=== PATIENT | female | born 2000 | race Hispanic/Latino ===

== ENCOUNTER 2022-10-07 10:38 | Observation (INO) | payer OTHER, SELFPAY ==
[2022-10-07 11:46] LABS: #Eosinphils 0.1 10x3/uL (0.0-0.5); #Monocytes 0.6 10x3/uL (0.0-1.1); #Neutrophils 9.9 10x3/uL (1.5-8.4); %Basophils 0.3 % (0.0-2.0); %Eosinophils 1.1 % (0.0-6.0); %Lymphocytes 16.3 % (18.0-47.0); %Monocytes 4.3 % (0.0-10.0); %Neutrophils 77.8 % (40.0-75.0); Hemoglobin 12.5 g/dL (12.0-15.5); Mean Corpuscular HGB CONC 32.1 g/dL (32.0-36.0); Mean Corpuscular Hemoglobin 25.2 pg (27.0-33.0); Mean Corpuscular Volume 78.3 fl (81.6-98.3); Mean Platelet Volume 9.9 fl (7.4-10.4); Platelet Count 286 10x3/uL (150-450); RBC Distribution Width 14.5 % (11.5-14.5); Red Blood Cell (RBC) Count 4.97 10x6/uL (3.90-5.03); White Blood Cell (WBC) Count 12.7 10x3/uL (3.5-10.5)
[2022-10-07 11:49] LABS: Bilirubin Neg (Negative); Blood, Urine 250 (Negative); Glucose, Urine (Dipstick) Normal (Negative); Ketone, Urine 5 mg/dL (Negative); Leukocyte 100 (Negative); Nitrite Negative (Negative); Protein, Urine (Dipstick) Negative (Neg-Trace); Specific Gravity, Urine 1.025 (1.005-1.030); Urobilinogen Normal mg/dL (Less than 2)
[2022-10-07 11:55] LABS: BHCG - Serum Negative (NEGATIVE); Pregs Control Background? CLEAR/WHITE (CLR/WHITE); Pregs Control Bar Appear? YES (CONTROL BAR)
[2022-10-07 11:59] LABS: ALT (SGPT) 74 U/L (8-55); AST (SGOT) 68 U/L (5-34); Albumin 4.5 g/dL (3.5-5.0); Alkaline Phosphatase 100 U/L (40-110); Anion Gap 13 mmol/L (10-20); BUN (Urea Nitrogen) 13 mg/dL (7.0-18.7); Bilirubin, Total 1.8 mg/dL (0.2-1.2); Calc. Creatinine Clearance 0 mL/min (70-130); Calcium 9.4 mg/dL (7.8-10.44); Carbon Dioxide 25 mmol/L (22-29); Chloride 107 mmol/L (98-107); Estimated GFR 114; Globulin 3.1 g/dL (2.4-3.5); Glucose 157 mg/dL (70-105); Lipase 41 U/L (8-78); Potassium 4.1 mmol/L (3.5-5.1); Protein, Total 7.6 g/dL (6.0-8.3); Sodium 141 mmol/L (136-145)
[2022-10-07 12:06] LABS: Clarity Slightly Cloudy (Clear)
[2022-10-07 12:11] LABS: Bacteria/HPF 3+ HPF (None Seen)
[2022-10-07] MEDS ORDERED: Promethazine HCl 25 MG/ML VIAL IM PRN (17:04)
[2022-10-07] MEDS ORDERED: hydrALAZINE 20 MG/ML VIAL SLOW IVP PRN (17:04)
[2022-10-07] MEDS ORDERED: Mag-Al 1200 mg/1200 mg/30 ML UDCUP PO PRN (17:04)
[2022-10-07] MEDS ORDERED: Calcium Carbonate 500 MG ChewTAB PO PRN (17:04)
[2022-10-07] MEDS ORDERED: HYDROcodone/Acetaminophen 10/325 mg Tablet PO PRN (17:04)
[2022-10-07] MEDS ORDERED: Dextrose 5% in Water 1,000 ML IV PRN (17:04)
[2022-10-07] MEDS ORDERED: Morphine 2 MG/ML VIAL SLOW IVP PRN (17:04)
[2022-10-07] MEDS ORDERED: Dextrose 50% Abboject 50 ML SYRINGE SLOW IVP PRN (17:04)
[2022-10-07] MEDS ORDERED: Ketorolac Tromethamine 30 MG/ML VIAL ONE (17:07)
[2022-10-07] MEDS ORDERED: Piperacillin/Tazobactam 3.375 GM in Sodium Chloride 0.9% 100 ML IVPB SCH ×2 (18:00→22:00)
[2022-10-07 20:02] LABS: SARS-CoV-2 NAA Rapid Test Not Detected (NotDetected)
[2022-10-07 20:59] VITALS: BMI 41.7
[2022-10-07] MEDS ORDERED: FLU VACC QS2022-23(6MOS UP)/PF 60 MCG/0.5 ML SYRINGE IM ONE (22:00)
[2022-10-07] MEDS ORDERED: D5 1/2 NS w/20 mEq KCL 1,000 ML ONE (22:42)
[2022-10-07] MEDS: Ketorolac Tromethamine 30 MG/ML VIAL IVP SCH (22:47)
[2022-10-07] MEDS: D5 1/2 NS w/20 mEq KCL 1,000 ML IV SCH (22:49)
[2022-10-08] MEDS: Piperacillin/Tazobactam 3.375 GM in Sodium Chloride 0.9% 100 ML IVPB SCH ×3 (02:03→17:53)
[2022-10-08] MEDS: D5 1/2 NS w/20 mEq KCL 1,000 ML IV SCH ×2 (04:57→17:55)
[2022-10-08] MEDS: Ketorolac Tromethamine 30 MG/ML VIAL IVP SCH ×4 (04:58→17:54)
[2022-10-08] MEDS ORDERED: Lidocaine 1% PF 5 ML VIAL ONE (06:38)
[2022-10-08] MEDS ORDERED: Ondansetron PF 4 MG/2 ML Vial ONE (06:38)
[2022-10-08] MEDS ORDERED: Ketorolac Tromethamine 30 MG/ML VIAL ONE (06:38)
[2022-10-08] MEDS ORDERED: Midazolam HCl 2 mg/2 ml Vial ONE (06:38)
[2022-10-08] MEDS ORDERED: Rocuronium Bromide 10 MG/ML (10ML VIAL) ONE (06:38)
[2022-10-08] MEDS ORDERED: PROPOFOL 20 ML ONE (06:38)
[2022-10-08] MEDS ORDERED: Glycopyrrolate 0.2 MG/ML 5 ML SYRINGE ONE (06:38)
[2022-10-08] MEDS ORDERED: Fentanyl 100 MCG/2 ML VIAL ONE ×2 (06:39→09:32)
[2022-10-08] MEDS ORDERED: Iopamidol 0 ML ONE (07:46)
[2022-10-08] MEDS ORDERED: Bupivacaine PF 0.5% 30 ML VIAL ONE (07:46)
[2022-10-08] MEDS ORDERED: EPINEPHrine 1 MG/ML AMP ONE (07:46)
[2022-10-08] MEDS ORDERED: PHENYLEPHRINE-NS 100 MCG/ML 10 ML SYRINGE ONE (09:38)
[2022-10-08] MEDS ORDERED: Piperacillin/Tazobactam 3.375 GM VIAL ONE (10:06)
[2022-10-08] MEDS: Ondansetron PF 4 MG/2 ML Vial IVP PRN (12:37)
[2022-10-09] MEDS: Ketorolac Tromethamine 30 MG/ML VIAL IVP SCH ×3 (00:13→09:54)
[2022-10-09] MEDS: D5 1/2 NS w/20 mEq KCL 1,000 ML IV SCH ×2 (00:13→08:05)
[2022-10-09] MEDS: Piperacillin/Tazobactam 3.375 GM in Sodium Chloride 0.9% 100 ML IVPB SCH ×2 (02:10→09:29)
[2022-10-09] MEDS: Ondansetron PF 4 MG/2 ML Vial IVP PRN (09:29)
[2022-10-09 11:31] VITALS: BP 103/58; TEMP 98.9
== END 2022-10-09 14:08 | disposition home or self-care (01) ==
LOC: CSHERS 10:38 → CSHTELE 19:02
PROVIDERS: ADMIT Surgery; ATTEND Surgery
PROC: 0FT44ZZ Resection of Gallbladder, Percutaneous Endoscopic Approach (ICD-10-PCS; principal; 2022-10-08)
DX: K80.12 Calculus of gallbladder with acute and chronic cholecystitis without obstruction (principal)
CPT/HCPCS: 36415; 76705; 80053; 81003; 81015; 83690; 84703; 85025; 88304; 94760; 96374; 96375; 96376; C1889; G0378; J0171; J1885; J2250; J2270; J2405; J2543; J2704; J3010; J3480; J3490; Q9967; S0020; U0002

== ENCOUNTER 2022-10-23 14:08 | Inpatient (IN) | payer OTHER, SELFPAY ==
[2022-10-23] MEDS ORDERED: Ondansetron ODT 4 MG TAB PO PRN (15:18)
[2022-10-23] MEDS ORDERED: Acetaminophen 325 MG TAB PO PRN (15:18)
[2022-10-23] MEDS ORDERED: Ondansetron PF 4 MG/2 ML Vial IVP PRN (15:18)
[2022-10-23] MEDS ORDERED: Acetaminophen 650 MG Suppository PR PRN (15:18)
[2022-10-23] MEDS ORDERED: Morphine 2 MG/ML VIAL SLOW IVP PRN (15:20)
[2022-10-23] MEDS ORDERED: Indomethacin 50 MG SUPP PR SCH (15:30)
[2022-10-23] MEDS ORDERED: Sodium Chloride 0.9% 1,000 ML IV SCH ×2 (15:30→17:45)
[2022-10-23 15:39] LABS: SARS-CoV-2 NAA Rapid Test Not Detected (NotDetected)
[2022-10-23 15:41] LABS: Hemoglobin 12.5 g/dL (12.0-15.5); Mean Corpuscular HGB CONC 34.4 g/dL (32.0-36.0); Mean Corpuscular Hemoglobin 25.8 pg (27.0-33.0); Mean Corpuscular Volume 74.8 fl (81.6-98.3); Mean Platelet Volume 9.7 fl (7.4-10.4); Platelet Count 682 10x3/uL (150-450); RBC Distribution Width 14.2 % (11.5-14.5); Red Blood Cell (RBC) Count 4.85 10x6/uL (3.90-5.03); White Blood Cell (WBC) Count 21.2 10x3/uL (3.5-10.5)
[2022-10-23 15:42] LABS: MDiff Complete? YES
[2022-10-23 15:50] LABS: BHCG - Serum Negative (NEGATIVE); Pregs Control Background? CLEAR/WHITE (CLR/WHITE); Pregs Control Bar Appear? YES (CONTROL BAR)
[2022-10-23 15:53] LABS: ALT (SGPT) 27 U/L (8-55); AST (SGOT) 23 U/L (5-34); Albumin 3.3 g/dL (3.5-5.0); Alkaline Phosphatase 198 U/L (40-110); Anion Gap 21 mmol/L (10-20); BUN (Urea Nitrogen) 50 mg/dL (7.0-18.7); Bilirubin, Total 3.1 mg/dL (0.2-1.2); Calc. Creatinine Clearance 71 mL/min (70-130); Calcium 9.6 mg/dL (7.8-10.44); Carbon Dioxide 23 mmol/L (22-29); Chloride 85 mmol/L (98-107); Estimated GFR 37; Globulin 4.2 g/dL (2.4-3.5); Glucose 196 mg/dL (70-105); Lipase 468 U/L (8-78); Potassium 3.5 mmol/L (3.5-5.1); Protein, Total 7.5 g/dL (6.0-8.3); Sodium 125 mmol/L (136-145)
[2022-10-23] MEDS ORDERED: Indomethacin 50 MG SUPP ONE (15:54)
[2022-10-23] MEDS ORDERED: Iopamidol 30 ML ONE (15:54)
[2022-10-23 16:07] LABS: Band 1 % (5-11); Lymphocytes 4 % (21-51); Metamyelocyte 3 % (0-0); Monocytes 12 % (0-10); Neutrophil 80 % (42-75)
[2022-10-23 16:10] LABS: Anisocytosis SLIGHT = 6-15 cells (100X) (0-5/hpf); Hypochromia SLIGHT = 6-15 cells (100X) (0-5/hpf); Microcytosis SLIGHT = 6-15 cells (100X) (0-5/hpf); Platelet Morphology Comment Appears Increased
[2022-10-23] MEDS ORDERED: Levofloxacin 500 mg/D5W 100 ml Premix Bag ONE (16:14)
[2022-10-23] MEDS ORDERED: Fentanyl 100 MCG/2 ML VIAL ONE ×3 (16:41→18:00)
[2022-10-23] MEDS ORDERED: PROPOFOL 20 ML ONE ×2 (16:41→17:25)
[2022-10-23] MEDS ORDERED: Dexamethasone 4 mg/ml Vial ONE (16:45)
[2022-10-23] MEDS ORDERED: Esmolol 100 MG/10 ML VIAL ONE (16:56)
[2022-10-23] MEDS ORDERED: PHENYLEPHRINE-NS 100 MCG/ML 10 ML SYRINGE ONE (17:21)
[2022-10-23] MEDS ORDERED: FLU VACC QS2022-23(6MOS UP)/PF 60 MCG/0.5 ML SYRINGE IM ONE (18:15)
[2022-10-23] MEDS ORDERED: Prevnar 13-Val Conj/PF 0.5 ML SYRINGE IM ONE (18:30)
[2022-10-23] MEDS: Sodium Chloride 0.9% 1,000 ML IV SCH ×2 (18:37→19:53)
[2022-10-23] MEDS: Morphine 4 MG/ML VIAL SLOW IVP PRN (19:48)
[2022-10-23 20:51] LABS: Sodium 125 mmol/L (136-145)
[2022-10-23 22:28] LABS: Sodium 125 mmol/L (136-145)
[2022-10-23 23:23] LABS: Bilirubin 1+ (Negative); Blood, Urine 250 (Negative); CAUTI Indications for Culture Fever or rigors; Clarity Clear (Clear); Glucose, Urine (Dipstick) Normal (Negative); Ketone, Urine 50 mg/dL (Negative); Leukocyte 25 (Negative); Nitrite Negative (Negative); Protein, Urine (Dipstick) 30 mg/dl (Neg-Trace)
[2022-10-23 23:36] LABS: Urine Culture Reflex No No
[2022-10-23 23:40] LABS: Bacteria/HPF 2+ HPF (None Seen)
[2022-10-24 00:48] LABS: Sodium, Urine Less than 20 mmol/L (Not Available); Urea Nitrogen, Random Urine 872 mg/dl
[2022-10-24 04:45] LABS: ALT (SGPT) 25 U/L (8-55); AST (SGOT) 21 U/L (5-34); Albumin 2.7 g/dL (3.5-5.0); Alkaline Phosphatase 158 U/L (40-110); Anion Gap 17 mmol/L (10-20); BUN (Urea Nitrogen) 40 mg/dL (7.0-18.7); Bilirubin, Total 2.2 mg/dL (0.2-1.2); Calc. Creatinine Clearance 133 mL/min (70-130); Calcium 8.1 mg/dL (7.8-10.44); Carbon Dioxide 21 mmol/L (22-29); Chloride 95 mmol/L (98-107); Estimated GFR 77; Globulin 3.3 g/dL (2.4-3.5); Glucose 162 mg/dL (70-105); Lipase 184 U/L (8-78); Potassium 3.9 mmol/L (3.5-5.1); Sodium 129 mmol/L (136-145)
[2022-10-24 04:55] LABS: #Basophils 0.1 10x3/uL (0.0-0.2); #Monocytes 1.1 10x3/uL (0.0-1.1); #Neutrophils 15.6 10x3/uL (1.5-8.4); %Basophils 0.3 % (0.0-2.0); %Eosinophils 0.1 % (0.0-6.0); %Neutrophils 88.3 % (40.0-75.0); Hemoglobin 9.9 g/dL (12.0-15.5); Mean Corpuscular HGB CONC 33.8 g/dL (32.0-36.0); Mean Corpuscular Hemoglobin 25.6 pg (27.0-33.0); Mean Corpuscular Volume 75.9 fl (81.6-98.3); Mean Platelet Volume 9.5 fl (7.4-10.4); Platelet Count 501 10x3/uL (150-450); RBC Distribution Width 14.6 % (11.5-14.5); Red Blood Cell (RBC) Count 3.86 10x6/uL (3.90-5.03); White Blood Cell (WBC) Count 17.7 10x3/uL (3.5-10.5)
[2022-10-24] MEDS: Sodium Chloride 0.9% 1,000 ML IV SCH ×4 (05:32→21:41)
[2022-10-24] MEDS: Pantoprazole 40 MG VIAL IVP SCH (09:00)
[2022-10-24 10:26] LABS: Sodium 129 mmol/L (136-145)
[2022-10-24] MEDS ORDERED: Naloxone HCl 0.4 mg/ml Vial ONE (10:41)
[2022-10-24] MEDS ORDERED: Fentanyl 100 MCG/2 ML VIAL ONE (10:41)
[2022-10-24] MEDS ORDERED: Sodium Chloride 0.9% 1,000 ML ONE (10:42)
[2022-10-24] MEDS ORDERED: Sodium Bicarbonate 2.5 MEQ/5 ML VIAL ONE (10:42)
[2022-10-24] MEDS ORDERED: Lidocaine 1% PF 5 ML VIAL ONE (10:43)
[2022-10-24] MEDS ORDERED: Midazolam HCl 2 mg/2 ml Vial ONE (10:47)
[2022-10-24] MEDS ORDERED: Dextrose 50% Abboject 50 ML SYRINGE SLOW IVP PRN (14:33)
[2022-10-24] MEDS ORDERED: Dextrose 5% in Water 1,000 ML IV PRN (14:33)
[2022-10-24 15:18] LABS: Iron 31 ug/dL (50-170); Iron Binding Capacity, Total 181 mcg/dL (265-497)
[2022-10-24] MEDS: HumaLOG 300 UNITS/3 ML VIAL SC PRN (17:00)
[2022-10-24 20:19] LABS: Hemoglobin 9.8 g/dL (12.0-15.5)
[2022-10-25 05:10] LABS: ALT (SGPT) 19 U/L (8-55); AST (SGOT) 16 U/L (5-34); Albumin 2.4 g/dL (3.5-5.0); Alkaline Phosphatase 124 U/L (40-110); Anion Gap 15 mmol/L (10-20); BUN (Urea Nitrogen) 21 mg/dL (7.0-18.7); Bilirubin, Total 1.7 mg/dL (0.2-1.2); Calc. Creatinine Clearance 203 mL/min (70-130); Carbon Dioxide 20 mmol/L (22-29); Chloride 102 mmol/L (98-107); Estimated GFR 125; Globulin 2.9 g/dL (2.4-3.5); Glucose 134 mg/dL (70-105); Potassium 3.3 mmol/L (3.5-5.1); Protein, Total 5.3 g/dL (6.0-8.3); Sodium 134 mmol/L (136-145)
[2022-10-25 05:21] LABS: #Basophils 0.1 10x3/uL (0.0-0.2); #Eosinphils 0.4 10x3/uL (0.0-0.5); #Neutrophils 11.5 10x3/uL (1.5-8.4); %Basophils 0.4 % (0.0-2.0); %Eosinophils 2.6 % (0.0-6.0); %Lymphocytes 5.4 % (18.0-47.0); %Neutrophils 80.3 % (40.0-75.0); Hemoglobin 10.1 g/dL (12.0-15.5); Mean Corpuscular HGB CONC 33.6 g/dL (32.0-36.0); Mean Corpuscular Hemoglobin 25.9 pg (27.0-33.0); Mean Corpuscular Volume 77.2 fl (81.6-98.3); Mean Platelet Volume 9.4 fl (7.4-10.4); Platelet Count 551 10x3/uL (150-450); RBC Distribution Width 14.8 % (11.5-14.5); White Blood Cell (WBC) Count 14.4 10x3/uL (3.5-10.5)
[2022-10-25] MEDS: Sodium Chloride 0.9% 1,000 ML IV SCH (07:44)
[2022-10-25] MEDS: Pantoprazole 40 MG VIAL IVP SCH (07:45)
[2022-10-25] MEDS ORDERED: Potassium Chloride 20 MEQ TAB PO SCH (09:00)
[2022-10-25] MEDS: Ferrous Sulfate 325 MG TAB PO SCH (09:05)
[2022-10-25] MEDS ORDERED: Sodium Chloride 0.9% 1,000 ML IV SCH (12:00)
[2022-10-25] MEDS: HumaLOG 300 UNITS/3 ML VIAL SC PRN (12:18)
[2022-10-25] MEDS: Lactated Ringer's 1,000 ML IV SCH ×2 (17:52→23:49)
[2022-10-25] MEDS: Morphine 4 MG/ML VIAL SLOW IVP PRN (23:49)
[2022-10-26 04:43] LABS: #Basophils 0.1 10x3/uL (0.0-0.2); #Eosinphils 0.3 10x3/uL (0.0-0.5); #Monocytes 1.5 10x3/uL (0.0-1.1); #Neutrophils 18.5 10x3/uL (1.5-8.4); %Basophils 0.5 % (0.0-2.0); %Eosinophils 1.5 % (0.0-6.0); %Lymphocytes 7.4 % (18.0-47.0); %Monocytes 6.6 % (0.0-10.0); %Neutrophils 79.4 % (40.0-75.0); Hemoglobin 9.9 g/dL (12.0-15.5); Mean Corpuscular HGB CONC 33.2 g/dL (32.0-36.0); Mean Corpuscular Hemoglobin 25.8 pg (27.0-33.0); Mean Corpuscular Volume 77.8 fl (81.6-98.3); Platelet Count 551 10x3/uL (150-450); RBC Distribution Width 15.3 % (11.5-14.5); Red Blood Cell (RBC) Count 3.83 10x6/uL (3.90-5.03); White Blood Cell (WBC) Count 23.3 10x3/uL (3.5-10.5)
[2022-10-26 04:52] LABS: ALT (SGPT) 19 U/L (8-55); AST (SGOT) 19 U/L (5-34); Albumin 2.1 g/dL (3.5-5.0); Alkaline Phosphatase 97 U/L (40-110); Anion Gap 13 mmol/L (10-20); BUN (Urea Nitrogen) 9 mg/dL (7.0-18.7); Bilirubin, Total 1.3 mg/dL (0.2-1.2); Calc. Creatinine Clearance 260 mL/min (70-130); Calcium 7.7 mg/dL (7.8-10.44); Carbon Dioxide 19 mmol/L (22-29); Chloride 106 mmol/L (98-107); Estimated GFR 132; Globulin 2.4 g/dL (2.4-3.5); Glucose 112 mg/dL (70-105); Potassium 3.8 mmol/L (3.5-5.1); Protein, Total 4.5 g/dL (6.0-8.3); Sodium 134 mmol/L (136-145)
[2022-10-26 06:17] LABS: Lymphocytes 9 % (21-51); Monocytes 6 % (0-10)
[2022-10-26 06:18] LABS: Neutrophil 85 % (42-75)
[2022-10-26 06:21] LABS: Anisocytosis SLIGHT = 6-15 cells (100X) (0-5/hpf); Hypochromia SLIGHT = 6-15 cells (100X) (0-5/hpf); Microcytosis SLIGHT = 6-15 cells (100X) (0-5/hpf); Polychromasia SLIGHT = 2-3 cells (100X) (0-2/hpf)
[2022-10-26 06:22] LABS: Platelet Morphology Comment Appears Adequate
[2022-10-26] MEDS: Pantoprazole 40 MG VIAL IVP SCH (09:27)
[2022-10-26] MEDS: Lactated Ringer's 1,000 ML IV SCH ×2 (09:28→11:41)
[2022-10-26] MEDS ORDERED: Piperacillin/Tazobactam 3.375 GM in Sodium Chloride 0.9% 100 ML IVPB SCH ×2 (10:30→13:00)
[2022-10-26] MEDS ORDERED: Piperacillin/Tazobactam 4.5 GM in Sodium Chloride 0.9% 100 ML IVPB SCH (12:00)
[2022-10-26] MEDS ORDERED: Iopamidol 300 61% 100 ML VIAL FS ONE (12:26)
[2022-10-26] MEDS ORDERED: Enoxaparin Sodium 120 MG/0.8 ML SYRINGE SC SCH (14:00)
[2022-10-26] MEDS: Piperacillin/Tazobactam 3.375 GM in Sodium Chloride 0.9% 100 ML IVPB SCH (17:41)
[2022-10-26] MEDS ORDERED: Morphine 4 MG/ML VIAL SLOW IVP PRN (18:15)
[2022-10-27] MEDS: Piperacillin/Tazobactam 3.375 GM in Sodium Chloride 0.9% 100 ML IVPB SCH ×3 (00:48→16:44)
[2022-10-27] MEDS: Lactated Ringer's 1,000 ML IV SCH ×4 (00:48→18:40)
[2022-10-27 04:53] LABS: MDiff Complete? YES; Mean Corpuscular HGB CONC 33.3 g/dL (32.0-36.0); Mean Corpuscular Hemoglobin 25.9 pg (27.0-33.0); Mean Corpuscular Volume 77.6 fl (81.6-98.3); Mean Platelet Volume 9.2 fl (7.4-10.4); Platelet Count 546 10x3/uL (150-450); RBC Distribution Width 15.2 % (11.5-14.5); Red Blood Cell (RBC) Count 3.48 10x6/uL (3.90-5.03); White Blood Cell (WBC) Count 21.8 10x3/uL (3.5-10.5)
[2022-10-27 04:59] LABS: ALT (SGPT) 20 U/L (8-55); AST (SGOT) 20 U/L (5-34); Albumin 2.2 g/dL (3.5-5.0); Alkaline Phosphatase 94 U/L (40-110); Anion Gap 12 mmol/L (10-20); BUN (Urea Nitrogen) 5 mg/dL (7.0-18.7); Bilirubin, Total 1.2 mg/dL (0.2-1.2); Calc. Creatinine Clearance 265 mL/min (70-130); Calcium 7.7 mg/dL (7.8-10.44); Carbon Dioxide 24 mmol/L (22-29); Chloride 104 mmol/L (98-107); Estimated GFR 133; Globulin 2.5 g/dL (2.4-3.5); Glucose 113 mg/dL (70-105); Potassium 3.5 mmol/L (3.5-5.1); Protein, Total 4.7 g/dL (6.0-8.3); Sodium 136 mmol/L (136-145)
[2022-10-27 06:23] LABS: Band 1 % (5-11); Eosinophils 3 % (0-10); Lymphocytes 7 % (21-51); Monocytes 14 % (0-10); Neutrophil 75 % (42-75)
[2022-10-27 06:26] LABS: Macrocytosis SLIGHT = 6-15 cells (100X) (0-5/hpf)
[2022-10-27 06:27] LABS: Platelet Morphology Comment Appears Adequate; Polychromasia SLIGHT = 2-3 cells (100X) (0-2/hpf)
[2022-10-27] MEDS: Pantoprazole 40 MG VIAL IVP SCH (08:20)
[2022-10-27] MEDS: Ferrous Sulfate 325 MG TAB PO SCH (08:21)
[2022-10-27] MEDS ORDERED: Metoprolol Tartrate 5 MG/5 ML VIAL IVP PRN (08:47)
[2022-10-27] MEDS: metroNIDAZOLE 500 MG in Premix Bag 1 BAG IVPB SCH (20:50)
[2022-10-28] MEDS: Piperacillin/Tazobactam 3.375 GM in Sodium Chloride 0.9% 100 ML IVPB SCH ×3 (00:33→17:13)
[2022-10-28] MEDS: metroNIDAZOLE 500 MG in Premix Bag 1 BAG IVPB SCH ×3 (04:50→20:54)
[2022-10-28 05:19] LABS: ALT (SGPT) 21 U/L (8-55); AST (SGOT) 26 U/L (5-34); Albumin 2.3 g/dL (3.5-5.0); Alkaline Phosphatase 101 U/L (40-110); Anion Gap 12 mmol/L (10-20); BUN (Urea Nitrogen) 4 mg/dL (7.0-18.7); Bilirubin, Total 1.3 mg/dL (0.2-1.2); Calc. Creatinine Clearance 270 mL/min (70-130); Calcium 7.7 mg/dL (7.8-10.44); Carbon Dioxide 26 mmol/L (22-29); Chloride 103 mmol/L (98-107); Estimated GFR 134; Globulin 2.6 g/dL (2.4-3.5); Glucose 124 mg/dL (70-105); Protein, Total 4.9 g/dL (6.0-8.3); Sodium 138 mmol/L (136-145)
[2022-10-28 05:28] LABS: Hemoglobin 8.6 g/dL (12.0-15.5); Mean Corpuscular HGB CONC 33.1 g/dL (32.0-36.0); Mean Corpuscular Hemoglobin 25.9 pg (27.0-33.0); Mean Corpuscular Volume 78.3 fl (81.6-98.3); Mean Platelet Volume 8.8 fl (7.4-10.4); Platelet Count 571 10x3/uL (150-450); RBC Distribution Width 15.3 % (11.5-14.5); Red Blood Cell (RBC) Count 3.32 10x6/uL (3.90-5.03); White Blood Cell (WBC) Count 16.6 10x3/uL (3.5-10.5)
[2022-10-28 05:55] LABS: MDiff Complete? YES
[2022-10-28 05:58] LABS: Band 2 % (5-11); Eosinophils 3 % (0-10); Lymphocytes 13 % (21-51); Metamyelocyte 2 % (0-0); Monocytes 6 % (0-10); Myelocyte 1 % (0-0); Neutrophil 73 % (42-75)
[2022-10-28 05:59] LABS: Platelet Morphology Comment Appears Increased
[2022-10-28] MEDS: Lactated Ringer's 1,000 ML IV SCH (09:11)
[2022-10-28] MEDS: Pantoprazole 40 MG VIAL IVP SCH (09:16)
[2022-10-28] MEDS ORDERED: Furosemide 20 MG/2 ML VIAL SLOW IVP SCH (10:00)
[2022-10-28] MEDS: Potassium Chloride 20 MEQ TAB PO SCH ×2 (17:13→20:41)
[2022-10-28] MEDS: Morphine 4 MG/ML VIAL SLOW IVP PRN (17:13)
[2022-10-29] MEDS: Piperacillin/Tazobactam 3.375 GM in Sodium Chloride 0.9% 100 ML IVPB SCH ×2 (00:39→09:46)
[2022-10-29] MEDS: Morphine 4 MG/ML VIAL SLOW IVP PRN (04:03)
[2022-10-29 05:41] LABS: #Basophils 0.1 10x3/uL (0.0-0.2); #Eosinphils 0.5 10x3/uL (0.0-0.5); #Monocytes 0.8 10x3/uL (0.0-1.1); %Basophils 0.4 % (0.0-2.0); %Eosinophils 3.8 % (0.0-6.0); %Lymphocytes 12.9 % (18.0-47.0); %Monocytes 5.7 % (0.0-10.0); %Neutrophils 72.7 % (40.0-75.0); Hemoglobin 8.3 g/dL (12.0-15.5); Mean Corpuscular HGB CONC 32.8 g/dL (32.0-36.0); Mean Corpuscular Hemoglobin 25.9 pg (27.0-33.0); Mean Corpuscular Volume 78.8 fl (81.6-98.3); Mean Platelet Volume 8.9 fl (7.4-10.4); Platelet Count 543 10x3/uL (150-450); RBC Distribution Width 15.3 % (11.5-14.5); Red Blood Cell (RBC) Count 3.21 10x6/uL (3.90-5.03); White Blood Cell (WBC) Count 13.7 10x3/uL (3.5-10.5)
[2022-10-29 06:06] LABS: Anion Gap 12 mmol/L (10-20); BUN (Urea Nitrogen) 6 mg/dL (7.0-18.7); Calc. Creatinine Clearance 270 mL/min (70-130); Calcium 7.4 mg/dL (7.8-10.44); Carbon Dioxide 28 mmol/L (22-29); Chloride 105 mmol/L (98-107); Estimated GFR 134; Glucose 95 mg/dL (70-105); Potassium 3.8 mmol/L (3.5-5.1); Sodium 141 mmol/L (136-145)
[2022-10-29 07:11] VITALS: BMI 43.9
[2022-10-29] MEDS: Ferrous Sulfate 325 MG TAB PO SCH (09:46)
[2022-10-29] MEDS: Pantoprazole 40 MG VIAL IVP SCH (09:46)
[2022-10-29 12:45] VITALS: BP 100/55; TEMP 98.1
== END 2022-10-29 16:18 | disposition home or self-care (01) | DRG 393 ==
LOC: CSHTELE 14:08
PROVIDERS: ADMIT Internal Medicine; ATTEND Hospitalist
PROC: 0W9G30Z Drainage of Peritoneal Cavity with Drainage Device, Percutaneous Approach (ICD-10-PCS; principal; 2022-10-23)
PROC: 0FC98ZZ Extirpation of Matter from Common Bile Duct, Via Natural or Artificial Opening Endoscopic (ICD-10-PCS; 2022-10-23)
PROC: BF101ZZ Fluoroscopy of Bile Ducts using Low Osmolar Contrast (ICD-10-PCS; 2022-10-23)
PROC: 0F798DZ Dilation of Common Bile Duct with Intraluminal Device, Via Natural or Artificial Opening Endoscopic (ICD-10-PCS; 2022-10-23)
DX: K91.89 Other postprocedural complications and disorders of digestive system (principal); A41.89 Other specified sepsis; K85.90 Acute pancreatitis without necrosis or infection, unspecified; E87.1 Hypo-osmolality and hyponatremia; N17.9 Acute kidney failure, unspecified; K62.5 Hemorrhage of anus and rectum; E86.0 Dehydration; K80.50 Calculus of bile duct without cholangitis or cholecystitis without obstruction; R73.9 Hyperglycemia, unspecified; D50.9 Iron deficiency anemia, unspecified; Y83.8 Other surgical procedures as the cause of abnormal reaction of the patient, or of later complication, without mention of misadventure at the time of the procedure; Z90.49 Acquired absence of other specified parts of digestive tract
CPT/HCPCS: 36415; 36416; 49020; 71275; 74176; 74177; 80048; 80053; 81001; 82728; 83036; 83540; 83550; 83605; 83690; 83930; 83935; 84300; 84443; 84540; 84560; 84703; 85025; 85379; 87040; 87070; 87205; 93005; 93010; 93970; C1725; C2617; C9113; J1100; J1650; J1815; J1940; J1956; J2250; J2270; J2310; J2543; J2704; J3010; J3490; J7050; J7120; Q9967; U0002